=== PATIENT | female | born 2000 | race Two or more races ===

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

== ENCOUNTER 2023-07-13 14:29 | Emergency (ER) | payer MEDICAID ==
[~2023-07-13] VITALS: Ht 144.8 cm; Wt 91.0 kg
[2023-07-13 15:15] LABS: Urine Bacteria FEW /hpf (None Seen); Urine Blood 2+ /uL (Negative); Urine Clarity Clear (Clear); Urine Color Light-Yellow (Yellow); Urine Protein, UAD Negative (Negative); Urine Specific Gravity 1.022 (1.001-1.035); Urine Urobilinogen Normal (Negative); Urine WBC 8 /hpf (0 - 5)
[2023-07-13 15:33] LABS: Anion Gap 4 (5-15); Carbon Dioxide 27 mmol/L (20-30); Chloride 106 mmol/L (98-107); Potassium 4.2 mmol/L (3.5-5.1); Sodium 137 mmol/L (136-145)
[2023-07-13 15:34] LABS: Calcium 9.9 mg/dL (8.7-10.4)
[2023-07-13 15:39] LABS: BUN/Creatinine Ratio 14.8 (10.0-20.0); Blood Urea Nitrogen 8 mg/dL (9-23); Glucose 108 mg/dL (74-106); Lipase 28 U/L (12-53)
[2023-07-13 15:40] LABS: Basophils # (auto) 0.1 10 ^3/uL (0-0.2); Eosinophils # (auto) 0.2 10 ^3/uL (0-0.8); Monocytes # (auto) 0.7 10 ^3/uL (0-1.3)
[2023-07-13 15:41] LABS: Basophils % (auto) 0.6 % (0.0-2.0); Eosinophils % (auto) 1.6 % (0.0-7.0); Hematocrit 39.1 % (36.0-46.0); Hemoglobin 12.4 g/dL (12.2-16.2); Lymphocytes # (auto) 2.2 10 ^3/uL (0.4-5.4); Lymphocytes % (auto) 14.4 % (10.0-50.0); Mean Corpuscular Hemoglobin 25.4 pg (28.0-32.0); Mean Corpuscular Hgb Conc. 31.8 g/dL (32.0-36.0); Mean Corpuscular Volume 79.8 fL (80.0-100.0); Monocytes % (auto) 4.5 % (0.0-12.0); Neutrophils # (auto) 11.8 10 ^3/uL (1.6-8.6); Neutrophils % (auto) 78.9 % (37.0-80.0); Red Cell Distribution Width 15.4 % (11.8-14.3)
[2023-07-13 15:47] VITALS: BP 147/103; PULSE 92; RESP 18; O2SAT 98
[2023-07-13] MEDS: NITROFURANTOIN 100 mg CAP PO ONE (16:31)
[2023-07-13] MEDS: DICYCLOMINE HCL (10MG/ML) 2 ML AMPULE IM ONE (16:44)
[2023-07-13] MEDS ORDERED: ZOFR4T PO (17:05)
[2023-07-13] MEDS ORDERED: ACET500T58 PO (17:05)
[2023-07-13] MEDS ORDERED: NITR-87 PO (17:05)
[2023-07-13] MEDS ORDERED: DICY10CA PO (17:05)
== END 2023-07-13 17:26 | disposition home or self-care (01) ==
LOC: ER 14:29
DX: N39.0 Urinary tract infection, site not specified (principal); R10.2 Pelvic and perineal pain; E66.01 Morbid (severe) obesity due to excess calories; Z68.41 Body mass index [BMI] 40.0-44.9, adult
CPT/HCPCS: 36415; 74176; 80048; 81001; 83605; 83690; 84484; 84702; 85025; 96372; 99285; J0500